=== PATIENT | male | born 1940 | race Asian ===

== ENCOUNTER 2022-05-03 11:00 | Inpatient (IN) | payer MEDICAID, OTHER ==
[~2022-05-03] VITALS: Ht 167.6 cm; Wt 64.0 kg
[2022-05-03 12:54] LABS: Basophils # (auto) 0.1 10 ^3/uL (0-0.2); Eosinophils # (auto) 0.4 10 ^3/uL (0-0.8); Eosinophils % (auto) 3.9 % (0.0-7.0); Hematocrit 44.3 % (41.0-53.0); Hemoglobin 14.6 g/dL (13.5-17.5); Lymphocytes % (auto) 49.4 % (10.0-50.0); Mean Corpuscular Hemoglobin 29.4 pg (28.0-32.0); Mean Corpuscular Hgb Conc. 32.9 g/dL (32.0-36.0); Mean Corpuscular Volume 89.4 fL (80.0-100.0); Monocytes # (auto) 0.7 10 ^3/uL (0-1.3); Monocytes % (auto) 6.7 % (0.0-12.0); Nucleated Red Blood Cells % 0.1 %; Red Blood Cells 4.95 10^6/uL (4.5-5.90); Red Cell Distribution Width 14.5 % (11.8-14.3); White Blood Cell 10.2 10^3/uL (4.4-10.8)
[2022-05-03 13:14] LABS: Albumin 3.8 g/dL (3.4-5.0); BUN/Creatinine Ratio 18.8; Calcium 9.1 mg/dL (8.5-10.1); Potassium 5.5 mmol/L (3.5-5.1)
[2022-05-03 13:17] LABS: Bilirubin, Total 0.3 mg/dL (0.2-1.0); Total Protein 7.9 g/dL (6.4-8.2)
[2022-05-03] MEDS ORDERED: FUROSEMIDE 20 MG/2 ML VIAL IV ONE (15:15)
[2022-05-03] MEDS ORDERED: SODIUM BICARBONATE 8.4% INJ 50ML SYRINGE IV ONE (15:15)
[2022-05-03] MEDS ORDERED: ALBUTEROL SULF 2.5 MG/0.5ML(0.5%) NEB SOLN NEB ONE (15:15)
[2022-05-03] MEDS ORDERED: SODIUM ZIRCONIUM CYCL 10 GM PAK PO ONE (15:15)
[2022-05-03] MEDS ORDERED: CALCIUM GLUC 1,000mg/50ml-NS 50 ML IV ONE (15:15)
[2022-05-03] MEDS ORDERED: ACETAMINOPHEN 325 MG TAB PO PRN (23:30)
[2022-05-03] MEDS ORDERED: DOCUSATE SOD 100 MG CAP PO PRN (23:30)
[2022-05-03] MEDS ORDERED: MORPHINE SULFATE INJ 2 MG/ml SYRG IV PRN (23:30)
[2022-05-03] MEDS ORDERED: NITROGLYCERIN 0.4 MG SL TAB SL PRN (23:30)
[2022-05-03] MEDS ORDERED: ONDANSETRON HCL 4 MG/2 ML VIAL IV PRN (23:30)
[2022-05-03] MEDS ORDERED: HYDROcodone-ACET 5/325MG TAB PO PRN (23:30)
[2022-05-04] VITALS (7 sets, daily range): BP systolic 111–136; BP diastolic 59–68
[2022-05-04 04:57] LABS: Urine WBC None Seen /hpf (0 - 3)
[2022-05-04 05:25] LABS: Urine Bacteria NONE SEEN /hpf (None Seen); Urine Blood Negative /uL (Negative); Urine Specific Gravity 1.009 (1.001-1.035)
[2022-05-04] MEDS: SODIUM CHLOR 0.9% PF (SALINE LOCK) 10ML VIAL/SYR IV SCH ×3 (06:17→22:00)
[2022-05-04] MEDS ORDERED: ASPI-325 PO (06:41)
[2022-05-04] MEDS ORDERED: PANT40T PO (06:41)
[2022-05-04] MEDS ORDERED: ATOR40TA52 PO (06:41)
[2022-05-04] MEDS ORDERED: NEBI5TAB2 PO (06:41)
[2022-05-04] MEDS ORDERED: LOSA-69 PO (06:41)
[2022-05-04 09:33] LABS: Basophils # (auto) 0.1 10 ^3/uL (0-0.2); Basophils % (auto) 0.7 % (0.0-2.0); Eosinophils # (auto) 0.5 10 ^3/uL (0-0.8); Eosinophils % (auto) 4.4 % (0.0-7.0); Hematocrit 43.8 % (41.0-53.0); Hemoglobin 14.3 g/dL (13.5-17.5); Lymphocytes # (auto) 5.1 10 ^3/uL (0.4-5.4); Lymphocytes % (auto) 48.3 % (10.0-50.0); Mean Corpuscular Hgb Conc. 32.6 g/dL (32.0-36.0); Mean Corpuscular Volume 89.1 fL (80.0-100.0); Monocytes # (auto) 0.7 10 ^3/uL (0-1.3); Monocytes % (auto) 6.9 % (0.0-12.0); Neutrophils # (auto) 4.2 10 ^3/uL (1.6-8.6); Neutrophils % (auto) 39.7 % (37.0-80.0); Nucleated Red Blood Cells % 0.1 %; Red Blood Cells 4.91 10^6/uL (4.5-5.90); Red Cell Distribution Width 14.7 % (11.8-14.3); White Blood Cell 10.6 10^3/uL (4.4-10.8)
[2022-05-04] MEDS: FAMOTIDINE (10MG/ML) 2ML VL IV SCH (09:44)
[2022-05-04] MEDS: ASPirin 81 mg TAB PO SCH (09:44)
[2022-05-04] MEDS: FUROSEMIDE 20 MG/2 ML VIAL IV SCH (09:44)
[2022-05-04 09:46] LABS: Albumin 3.5 g/dL (3.4-5.0); Calcium 9.6 mg/dL (8.5-10.1); Potassium 5.2 mmol/L (3.5-5.1)
[2022-05-04 09:49] LABS: BUN/Creatinine Ratio 19.8; Bilirubin, Total 0.4 mg/dL (0.2-1.0); Total Protein 7.6 g/dL (6.4-8.2)
[2022-05-04] MEDS: levoFLOXacin 500 MG TAB PO SCH (19:10)
[2022-05-04] MEDS: SODIUM CHLORIDE 0.9% 1,000 ML IV SCH ×2 (19:11→20:21)
[2022-05-04] MEDS: TAMSULOSIN HYDROCHLORIDE 0.4 MG CAP PO SCH (19:11)
[2022-05-04] MEDS: ATORVASTATIN 20 MG TAB PO SCH (21:22)
[2022-05-05 05:00] VITALS: BP 108/56
[2022-05-05] MEDS: SODIUM CHLOR 0.9% PF (SALINE LOCK) 10ML VIAL/SYR IV SCH ×3 (06:07→21:08)
[2022-05-05 08:00] VITALS: BP 113/60
[2022-05-05] MEDS: ASPirin 81 mg TAB PO SCH (10:52)
[2022-05-05] MEDS: levoFLOXacin 500 MG TAB PO SCH (10:53)
[2022-05-05] MEDS: FUROSEMIDE 20 MG/2 ML VIAL IV SCH (10:53)
[2022-05-05] MEDS: FAMOTIDINE (10MG/ML) 2ML VL IV SCH (10:53)
[2022-05-05 12:00] VITALS: BP 114/60
[2022-05-05] MEDS ORDERED: LEVOPOW XX (15:53)
[2022-05-05 16:00] VITALS: BP 106/63
[2022-05-05 16:46] LABS: BUN/Creatinine Ratio 18.5; Calcium 10.3 mg/dL (8.5-10.1); Potassium 5.4 mmol/L (3.5-5.1)
[2022-05-05] MEDS: TAMSULOSIN HYDROCHLORIDE 0.4 MG CAP PO SCH (18:01)
[2022-05-05] MEDS: SODIUM CHLORIDE 0.9% 1,000 ML IV SCH ×2 (18:30→22:46)
[2022-05-05] MEDS: ATORVASTATIN 20 MG TAB PO SCH (21:08)
[2022-05-05 22:00] VITALS: BP 131/64
[2022-05-06] VITALS (7 sets, daily range): BP systolic 111–143; BP diastolic 63–82
[2022-05-06] MEDS: ASPirin 81 mg TAB PO SCH (10:39)
[2022-05-06] MEDS: levoFLOXacin 250 MG TAB PO SCH (10:39)
[2022-05-06] MEDS: FAMOTIDINE (10MG/ML) 2ML VL IV SCH (10:40)
[2022-05-06] MEDS: FUROSEMIDE 20 MG/2 ML VIAL IV SCH (10:41)
[2022-05-06] MEDS: SODIUM CHLOR 0.9% PF (SALINE LOCK) 10ML VIAL/SYR IV SCH ×2 (10:44→22:16)
[2022-05-06] MEDS: SODIUM CHLORIDE 0.9% 1,000 ML IV SCH ×3 (10:44→23:34)
[2022-05-06] MEDS ORDERED: TAM04C PO (12:07)
[2022-05-06 16:03] LABS: BUN/Creatinine Ratio 13.8; Calcium 9.6 mg/dL (8.5-10.1); Potassium 5.3 mmol/L (3.5-5.1)
[2022-05-06] MEDS: D5W/SOD CHLO 0.9% 1,000 ML IV SCH (17:15)
[2022-05-06] MEDS: TAMSULOSIN HYDROCHLORIDE 0.4 MG CAP PO SCH (18:25)
[2022-05-06] MEDS: ATORVASTATIN 20 MG TAB PO SCH (22:16)
[2022-05-06 23:55] LABS: Urine WBC None Seen /hpf (0 - 3)
[2022-05-07 00:03] LABS: Urine Bacteria NONE SEEN /hpf (None Seen); Urine Blood Negative /uL (Negative); Urine Specific Gravity 1.011 (1.001-1.035)
[2022-05-07 00:18] LABS: Protein, Urine 8.4 mg/dL (0.0-11.9)
[2022-05-07 05:00] VITALS: BP 123/61
[2022-05-07] MEDS: SODIUM CHLORIDE 0.9% 1,000 ML IV SCH (05:33)
[2022-05-07 08:10] VITALS: BP 119/69
[2022-05-07 08:12] LABS: Albumin 3.4 g/dL (3.4-5.0); Calcium 9.6 mg/dL (8.5-10.1)
[2022-05-07 08:16] LABS: BUN/Creatinine Ratio 15.9; Bilirubin, Total 0.6 mg/dL (0.2-1.0); Total Protein 7.3 g/dL (6.4-8.2)
[2022-05-07 09:00] VITALS: BP 119/69
[2022-05-07] MEDS: D5W/SOD CHLO 0.9% 1,000 ML IV SCH (09:40)
[2022-05-07] MEDS: FAMOTIDINE (10MG/ML) 2ML VL IV SCH (09:42)
[2022-05-07] MEDS: levoFLOXacin 250 MG TAB PO SCH (09:42)
[2022-05-07] MEDS: ASPirin 81 mg TAB PO SCH (09:42)
[2022-05-07] MEDS: SODIUM CHLOR 0.9% PF (SALINE LOCK) 10ML VIAL/SYR IV SCH (09:43)
[2022-05-07] MEDS ORDERED: LEVOTHYROXINE SODIUM 25 MCG TAB PO ONE (09:45)
[2022-05-07] MEDS ORDERED: D5W/SOD CHLO 0.9% 1,000 ML IV SCH (09:45)
[2022-05-07] MEDS ORDERED: LEV75T PO (09:47)
[2022-05-07] MEDS ORDERED: ERGOCALCIFEROL 50,000 UNIT(1.25MG) CAP PO SCH (11:00)
[2022-05-07 13:00] VITALS: BP 124/63
== END 2022-05-07 14:35 | disposition home or self-care (01) | DRG 501 ==
LOC: ER 11:00 → OVERFLOW 23:22 → EAST 05-04 04:55
PROVIDERS: ADMIT Nurse Practitioner Family; ATTEND Internal Medicine
DX: N50.3 Cyst of epididymis (principal); N17.9 Acute kidney failure, unspecified; I13.0 Hypertensive heart and chronic kidney disease with heart failure and stage 1 through stage 4 chronic kidney disease, or unspecified chronic kidney disease; I42.9 Cardiomyopathy, unspecified; I50.22 Chronic systolic (congestive) heart failure; N43.3 Hydrocele, unspecified; E87.5 Hyperkalemia; N18.31 Chronic kidney disease, stage 3a; Z20.822 Contact with and (suspected) exposure to COVID-19; N40.0 Benign prostatic hyperplasia without lower urinary tract symptoms; Z79.82 Long term (current) use of aspirin
CPT/HCPCS: 36415; 74176; 76775; 76870; 80048; 80053; 80061; 81001; 82306; 82570; 82607; 83036; 83880; 83930; 83935; 84132; 84156; 84300; 84439; 84443; 84484; 85025; 93306; 94640; 96374; G0378; J3490; J7042

== ENCOUNTER → 2022-08-19 | Outpatient (CLI) | payer MEDICAID ==
[~2022-08-19] MED LIST: ASPI-325 PO; ATOR40TA52 PO; LEV75T PO; LEVOPOW XX; NEBI5TAB2 PO; PANT40T PO; TAM04C PO
[2022-08-19 08:41] LABS: Urine Bacteria NONE SEEN /hpf (None Seen); Urine Blood Negative /uL (Negative); Urine Specific Gravity 1.012 (1.001-1.035); Urine WBC <1 /hpf (0 - 3)
[2022-08-19 09:02] LABS: Albumin 3.6 g/dL (3.4-5.0); Calcium 10.1 mg/dL (8.5-10.1); Potassium 5.1 mmol/L (3.5-5.1)
[2022-08-19 09:08] LABS: BUN/Creatinine Ratio 14.3; Bilirubin, Total 0.7 mg/dL (0.2-1.0); Total Protein 7.6 g/dL (6.4-8.2)
== END | disposition home or self-care (01) ==
LOC: LAB 08:17
PROVIDERS: ATTEND Internal Medicine
DX: I10 Essential (primary) hypertension (principal); E11.9 Type 2 diabetes mellitus without complications; E03.9 Hypothyroidism, unspecified; N40.0 Benign prostatic hyperplasia without lower urinary tract symptoms; R51.9 Headache, unspecified
CPT/HCPCS: 36415; 80053; 80061; 81001; 83036; 84443

== ENCOUNTER → 2023-01-24 | Outpatient (CLI) | payer MEDICAID ==
[2023-01-24 13:59] LABS: Micro Albumin 14.1 mg/L (0-30.0)
== END | disposition home or self-care (01) ==
LOC: LAB 08:48
PROVIDERS: ATTEND Internal Medicine
DX: E11.9 Type 2 diabetes mellitus without complications (principal)
CPT/HCPCS: 36415; 82043; 82570; 83036; 84443

== ENCOUNTER → 2023-03-19 | Outpatient (CLI) | payer MEDICAID ==
[~2023-03-19] MED LIST changes: -TAM04C PO; +TAMS-35 PO
== END | disposition home or self-care (01) ==
LOC: Rad HDHVI 08:18
PROVIDERS: ATTEND Internal Medicine Cardiovascular Disease
DX: I08.8 Other rheumatic multiple valve diseases (principal); E78.5 Hyperlipidemia, unspecified; I11.9 Hypertensive heart disease without heart failure
CPT/HCPCS: 93306

== ENCOUNTER → 2023-03-26 | Outpatient (CLI) | payer MEDICAID ==
[~2023-03-26] VITALS: Ht 162.6 cm; Wt 63.5 kg
[~2023-03-26] MED LIST changes: +ADENOSINE 53 MG in GIVE UN-DILUTED 0 ML IV ONE; +ADENOSINE 90 MG/30 ML INJ IV ONE
== END | disposition home or self-care (01) ==
LOC: Rad HDHVI 08:08
PROVIDERS: ATTEND Internal Medicine Cardiovascular Disease
DX: Z01.810 Encounter for preprocedural cardiovascular examination (principal); I10 Essential (primary) hypertension; I25.10 Atherosclerotic heart disease of native coronary artery without angina pectoris; E78.00 Pure hypercholesterolemia, unspecified; R07.89 Other chest pain; R60.9 Edema, unspecified; R06.02 Shortness of breath; I25.2 Old myocardial infarction
CPT/HCPCS: 78452; 93005; 96374; 96375; A9500; J0153

== ENCOUNTER 2023-04-16 07:32 | Emergency (ER) | payer MEDICAID ==
[~2023-04-16] VITALS: Ht 152.4 cm; Wt 59.8 kg
[~2023-04-16 07:32] MED LIST changes: -ADENOSINE 53 MG in GIVE UN-DILUTED 0 ML IV ONE; -ADENOSINE 90 MG/30 ML INJ IV ONE
[2023-04-16] MEDS ORDERED: SODIUM CHLORIDE 0.9% 1,000 ML IV ONE (08:00)
[2023-04-16 08:09] LABS: Basophils # (auto) 0.1 10 ^3/uL (0-0.2); Basophils % (auto) 0.7 % (0.0-2.0); Eosinophils # (auto) 0.3 10 ^3/uL (0-0.8); Eosinophils % (auto) 1.6 % (0.0-7.0); Hematocrit 47.2 % (41.0-53.0); Hemoglobin 15.6 g/dL (13.5-17.5); Lymphocytes # (auto) 7.3 10 ^3/uL (0.4-5.4); Lymphocytes % (auto) 42.2 % (10.0-50.0); Mean Corpuscular Volume 87.5 fL (80.0-100.0); Monocytes # (auto) 0.7 10 ^3/uL (0-1.3); Monocytes % (auto) 3.8 % (0.0-12.0); Neutrophils # (auto) 8.9 10 ^3/uL (1.6-8.6); Neutrophils % (auto) 51.7 % (37.0-80.0); Nucleated Red Blood Cells % 0.1 %; White Blood Cell 17.2 10^3/uL (4.4-10.8)
[2023-04-16 08:10] LABS: Mean Corpuscular Hemoglobin 28.9 pg (28.0-32.0); Red Cell Distribution Width 15.1 % (11.8-14.3)
[2023-04-16 08:24] LABS: INR 1.08 (0.9-1.15); Partial Thromboplastin Time 28.2 SEC (24.5-34.5)
[2023-04-16 08:26] LABS: Albumin 3.7 g/dL (3.4-5.0); Calcium 9.4 mg/dL (8.5-10.1); Potassium 4.2 mmol/L (3.5-5.1)
[2023-04-16 08:30] LABS: BUN/Creatinine Ratio 17.5 (10.0-20.0); Total Protein 7.4 g/dL (6.4-8.2)
[2023-04-16] MEDS ORDERED: metroNIDAZOLE 500MG/100ML 100 ML IV ONE (08:45)
[2023-04-16 09:04] LABS: Urine Bacteria NONE SEEN /hpf (None Seen); Urine Blood Negative /uL (Negative); Urine Hyaline Cast FEW /lpf (0 - 2); Urine Mucus FEW (None Seen); Urine Specific Gravity 1.025 (1.001-1.035); Urine WBC 2 /hpf (0 - 3)
[2023-04-16] MEDS ORDERED: METR375C PO (11:16)
[2023-04-16 11:44] VITALS: BP 117/68
== END 2023-04-16 11:47 | disposition home or self-care (01) ==
LOC: ER 07:32
DX: K52.9 Noninfective gastroenteritis and colitis, unspecified (principal); K92.1 Melena; I11.0 Hypertensive heart disease with heart failure; I50.9 Heart failure, unspecified
CPT/HCPCS: 36415; 71045; 74176; 80053; 81001; 83605; 84484; 85025; 85610; 85730; 87040; 93005; 96365; 99285; J3490; J7030

== ENCOUNTER → 2023-09-22 | Outpatient (CLI) | payer MEDICAID ==
[~2023-09-22] MED LIST changes: +LOSA50TA46 PO; +METR375C PO
[2023-09-22 13:35] VITALS: BP 132/59; PULSE 65; RESP 16; O2SAT 96
[2023-09-22 13:53] VITALS: BP 126/61; PULSE 64; RESP 16; O2SAT 96
== END | disposition home or self-care (01) ==
LOC: CHF HDHVI 13:09
PROVIDERS: ATTEND Internal Medicine Cardiovascular Disease
DX: Z01.818 Encounter for other preprocedural examination (principal); R94.31 Abnormal electrocardiogram [ECG] [EKG]; I25.5 Ischemic cardiomyopathy
CPT/HCPCS: 93005; G0463

== ENCOUNTER 2023-09-25 07:52 | Day surgery (SDC) | payer MEDICAID ==
[2023-09-22 14:40] LABS: Basophils # (auto) 0.2 10 ^3/uL (0-0.2); Basophils % (auto) 2.2 % (0.0-2.0); Eosinophils # (auto) 0.3 10 ^3/uL (0-0.8); Eosinophils % (auto) 3.5 % (0.0-7.0); Hematocrit 45.6 % (41.0-53.0); Hemoglobin 15.3 g/dL (13.5-17.5); Lymphocytes # (auto) 2.7 10 ^3/uL (0.4-5.4); Lymphocytes % (auto) 35.7 % (10.0-50.0); Mean Corpuscular Hemoglobin 29.1 pg (28.0-32.0); Mean Corpuscular Hgb Conc. 33.6 g/dL (32.0-36.0); Mean Corpuscular Volume 86.7 fL (80.0-100.0); Monocytes # (auto) 0.5 10 ^3/uL (0-1.3); Monocytes % (auto) 6.4 % (0.0-12.0); Neutrophils % (auto) 52.2 % (37.0-80.0); Nucleated Red Blood Cells % 0.1 %; Red Blood Cells 5.26 10^6/uL (4.5-5.90); Red Cell Distribution Width 14.6 % (11.8-14.3); White Blood Cell 7.6 10^3/uL (4.4-10.8)
[2023-09-22 15:00] LABS: Chloride 107 mmol/L (98-107); INR 0.99 (0.9-1.15); Partial Thromboplastin Time 25.1 SEC (24.5-34.5); Potassium 4.2 mmol/L (3.5-5.1); Prothrombin Time 10.4 sec (9.3-11.8); Sodium 139 mmol/L (136-145)
[2023-09-22 15:01] LABS: Anion Gap 8 (5-15); Carbon Dioxide 24 mmol/L (20-30)
[2023-09-22 15:06] LABS: BUN/Creatinine Ratio 12.7 (10.0-20.0); Blood Urea Nitrogen 16 mg/dL (9-23); Glucose 113 mg/dL (74-106)
[2023-09-25] VITALS (8 sets, daily range): BP systolic 129–151; BP diastolic 68–91; PULSE 54–67; RESP 13–19; TEMP 97.6; O2SAT 92–97
[~2023-09-25] VITALS: Ht 162.6 cm; Wt 60.8 kg
[~2023-09-25 07:52] MED LIST changes: -LEVOPOW XX; -METR375C PO
[2023-09-25] MEDS ORDERED: IOHEXOL 350 MG/ML 100ML IJ ONE ×2 (09:55→10:05)
[2023-09-25] MEDS ORDERED: LIDOCAINE 2%HCL (LOCAL ANESTH.) INJ 20ML MDV ONE (09:55)
[2023-09-25] MEDS ORDERED: ANGIOMAX 250 MG VIAL IV ONE (10:04)
[2023-09-25] MEDS ORDERED: fentaNYL CITRATE 100 MCG/2 ML VL ONE (10:04)
[2023-09-25] MEDS ORDERED: MIDAZOLAM HCL 2MG/2ML 2ml VIAL (1mg/ml) ONE (10:05)
[2023-09-25] MEDS ORDERED: SODIUM CHL 0.9% 50 ML ONE (10:05)
[2023-09-25] MEDS ORDERED: ASPirin 325 MG TAB ONE (10:35)
[2023-09-25] MEDS ORDERED: TICAGRELOR 90 MG TAB ONE (10:35)
== END 2023-09-25 13:25 | disposition home or self-care (01) ==
LOC: CATH 07:52
PROVIDERS: ATTEND Internal Medicine Cardiovascular Disease
DX: I25.5 Ischemic cardiomyopathy (principal); I25.10 Atherosclerotic heart disease of native coronary artery without angina pectoris; I12.9 Hypertensive chronic kidney disease with stage 1 through stage 4 chronic kidney disease, or unspecified chronic kidney disease; N18.2 Chronic kidney disease, stage 2 (mild); J44.9 Chronic obstructive pulmonary disease, unspecified; E78.5 Hyperlipidemia, unspecified; Z86.73 Personal history of transient ischemic attack (TIA), and cerebral infarction without residual deficits; Z79.01 Long term (current) use of anticoagulants; Z79.899 Other long term (current) drug therapy
CPT/HCPCS: 36415; 80048; 85025; 85610; 85730; 93458; C1769; C1874; C1887; C1894; C9602; J0583; J1644; J2250; J3010; Q9967; 99152

== ENCOUNTER → 2024-03-08 | Outpatient (CLI) | payer MEDICAID ==
[~2024-03-08] MED LIST changes: +CLOP75TA28 PO; +LOSA-534 PO; -LOSA50TA46 PO; +TAMS0.4C36 PO
[2024-03-08 09:38] VITALS: BP 110/60; PULSE 59; RESP 16; O2SAT 95
[2024-03-08 09:52] VITALS: BP 98/56; PULSE 53; RESP 18; O2SAT 96
== END | disposition home or self-care (01) ==
LOC: Rad HDHVI 09:27
PROVIDERS: ATTEND Internal Medicine Cardiovascular Disease
DX: Z01.818 Encounter for other preprocedural examination (principal); I65.21 Occlusion and stenosis of right carotid artery; I70.0 Atherosclerosis of aorta; I10 Essential (primary) hypertension; I25.10 Atherosclerotic heart disease of native coronary artery without angina pectoris
CPT/HCPCS: 71046; 93005; G0463

== ENCOUNTER 2024-03-11 08:03 | Inpatient (IN) | payer MEDICAID ==
[2024-03-08 11:54] LABS: INR 1.03 (0.9-1.15); Partial Thromboplastin Time 25.3 SEC (24.5-34.5); Prothrombin Time 10.9 sec (9.3-11.8)
[~2024-03-11] VITALS: Ht 162.6 cm; Wt 65.3 kg
[2024-03-11] VITALS (16 sets, daily range): BP systolic 118–169; BP diastolic 54–89; PULSE 46–69; RESP 15–20; TEMP 97.4–98.3; O2SAT 96–100
[~2024-03-11 08:03] MED LIST changes: -TAMS0.4C36 PO
[2024-03-11] MEDS: HEPARIN SODIUM (PORCINE) 5000 UNITS/ML 1ML VIAL ONE (09:36)
[2024-03-11] MEDS: ANGIOMAX 250 MG VIAL IV ONE (09:36)
[2024-03-11] MEDS: VERAPAMIL 2.5MG/ML INJ 2ML VIAL IV ONE (09:37)
[2024-03-11] MEDS: MIDAZOLAM HCL 2MG/2ML 2ml VIAL (1mg/ml) ONE (09:37)
[2024-03-11] MEDS: SODIUM CHL 0.9% 0 ML ONE (09:37)
[2024-03-11] MEDS: fentaNYL CITRATE 100 MCG/2 ML VL ONE (09:37)
[2024-03-11] MEDS: ATROPINE SULF 1 MG/10ml SYR ONE (10:21)
[2024-03-11] MEDS: IODIXANOL 320MG/ML 100ML BTL IV ONE (10:38)
[2024-03-11] MEDS: CLOPIDOGREL BISULFATE 75 MG TAB ONE (10:48)
[2024-03-11] MEDS: ASPirin 81 mg TAB ONE (10:48)
[2024-03-11] MEDS ORDERED: NITROGLYCERIN 0.4 MG SL TAB SL PRN (12:15)
[2024-03-11] MEDS ORDERED: MORPHINE SULFATE INJ 2 MG/ml SYRG IV PRN (12:15)
[2024-03-11] MEDS ORDERED: TAMS0.4C36 PO (12:19)
[2024-03-11] MEDS ORDERED: LEV75T PO (12:19)
[2024-03-11] MEDS: LOSARTAN POTASSIUM 50 MG TAB PO ONE (16:30)
[2024-03-11] MEDS: TAMSULOSIN HYDROCHLORIDE 0.4 MG CAP PO SCH (17:18)
[2024-03-11] MEDS: ATORVASTATIN 20 MG TAB PO SCH (22:28)
[2024-03-12] VITALS (7 sets, daily range): BP systolic 102–150; BP diastolic 59–86; PULSE 51–77; RESP 18–19; TEMP 97.2–97.8; O2SAT 97–99
[2024-03-12] MEDS: LEVOTHYROXINE SODIUM 25 MCG TAB PO SCH (06:49)
[2024-03-12] MEDS: ASPirin 81 mg TAB PO SCH (10:50)
[2024-03-12] MEDS: CLOPIDOGREL BISULFATE 75 MG TAB PO SCH (10:50)
[2024-03-12] MEDS: PANTOPRAZOLE 40 MG TAB PO SCH (10:51)
[2024-03-12] MEDS: LOSARTAN POTASSIUM 50 MG TAB PO SCH (10:52)
== END 2024-03-12 18:10 | disposition home or self-care (01) | DRG 175 ==
LOC: CATH 08:03 → TELE 12:19 → TELE-CENTR 15:26
PROVIDERS: ADMIT Internal Medicine Cardiovascular Disease; ATTEND Internal Medicine Cardiovascular Disease
PROC: 027135Z Dilation of Coronary Artery, Two Arteries with Two Drug-eluting Intraluminal Devices, Percutaneous Approach (ICD-10-PCS; principal; 2024-03-11)
PROC: 4A023N7 Measurement of Cardiac Sampling and Pressure, Left Heart, Percutaneous Approach (ICD-10-PCS; 2024-03-11)
PROC: B211YZZ Fluoroscopy of Multiple Coronary Arteries using Other Contrast (ICD-10-PCS; 2024-03-11)
PROC: 02C13ZZ Extirpation of Matter from Coronary Artery, Two Arteries, Percutaneous Approach (ICD-10-PCS; 2024-03-11)
DX: I25.10 Atherosclerotic heart disease of native coronary artery without angina pectoris (principal); R00.1 Bradycardia, unspecified
CPT/HCPCS: 36415; 85610; 85730; 92929; 92933; 93458; 99152; C1724; C1874; G0378; J2250; Q9967

== ENCOUNTER 2024-03-24 12:26 | Inpatient (IN) | payer MEDICAID ==
[~2024-03-24] VITALS: Ht 154.9 cm; Wt 62.4 kg
[~2024-03-24 12:26] MED LIST changes: -TAMS-35 PO; +TAMS0.4C36 PO
[2024-03-24 13:12] LABS: Basophils # (auto) 0.1 10 ^3/uL (0-0.2); Basophils % (auto) 1.1 % (0.0-2.0); Eosinophils # (auto) 0.3 10 ^3/uL (0-0.8); Eosinophils % (auto) 3.7 % (0.0-7.0); Hematocrit 44.1 % (41.0-53.0); Hemoglobin 14.5 g/dL (13.5-17.5); Lymphocytes # (auto) 3.7 10 ^3/uL (0.4-5.4); Mean Corpuscular Hemoglobin 26.9 pg (28.0-32.0); Mean Corpuscular Hgb Conc. 32.9 g/dL (32.0-36.0); Mean Corpuscular Volume 81.7 fL (80.0-100.0); Monocytes # (auto) 0.4 10 ^3/uL (0-1.3); Monocytes % (auto) 4.8 % (0.0-12.0); Neutrophils # (auto) 3.7 10 ^3/uL (1.6-8.6); Neutrophils % (auto) 45.4 % (37.0-80.0); Nucleated Red Blood Cells % 0.1 %; Red Blood Cells 5.39 10^6/uL (4.5-5.90); Red Cell Distribution Width 17.7 % (11.8-14.3); White Blood Cell 8.2 10^3/uL (4.4-10.8)
[2024-03-24 13:35] LABS: Alanine Aminotransferase 17 U/L (7-40); Albumin 4.2 g/dL (3.2-4.8); Alkaline Phosphatase 62 U/L (46-116); Anion Gap 5 (5-15); Aspartate Aminotransferase 25 U/L (13-40); BUN/Creatinine Ratio 10.3 (10.0-20.0); Blood Urea Nitrogen 12 mg/dL (9-23); Calcium 10.2 mg/dL (8.5-10.1); Carbon Dioxide 26 mmol/L (20-30); Chloride 109 mmol/L (98-107); Glucose 133 mg/dL (74-106); Potassium 3.9 mmol/L (3.5-5.1); Sodium 140 mmol/L (136-145)
[2024-03-24 13:36] LABS: Bilirubin, Total 0.7 mg/dL (0.2-1.0)
[2024-03-24 16:38] LABS: INR 1.03 (0.9-1.15); Partial Thromboplastin Time 25.4 SEC (24.5-34.5); Prothrombin Time 10.9 sec (9.3-11.8)
[2024-03-25] VITALS (13 sets, daily range): BP systolic 142–167; BP diastolic 61–90; PULSE 53–72; RESP 15–18; TEMP 97.2–98.4; O2SAT 92–98
[2024-03-25] MEDS ORDERED: ENOXAPARIN SOD 30 MG/0.3 ML SYRINGE IV ONE (01:00)
[2024-03-25] MEDS: SODIUM CHLORIDE 0.9% 1,000 ML IV ONE (01:58)
[2024-03-25] MEDS: ENOXAPARIN SOD 30 MG/0.3 ML SYRINGE IV ONE (03:55)
[2024-03-25 07:00] LABS: Urine Bacteria None Seen /hpf (None Seen)
[2024-03-25 07:26] LABS: Urine Blood Negative /uL (Negative); Urine Clarity Clear (Clear); Urine Color Light-Yellow (Yellow); Urine Protein, UAD Negative (Negative); Urine Specific Gravity 1.015 (1.001-1.035); Urine Urobilinogen Normal (Negative); Urine WBC <1 /hpf (0 - 3)
[2024-03-25] MEDS: LIDOCAINE 2%HCL (LOCAL ANESTH.) INJ 20ML MDV ONE (12:54)
[2024-03-25] MEDS: IOHEXOL 350 MG/ML 100ML IJ ONE (12:54)
[2024-03-25] MEDS: SODIUM CHL 0.9% 50 ML ONE (13:12)
[2024-03-25] MEDS: fentaNYL CITRATE 100 MCG/2 ML VL ONE (13:12)
[2024-03-25] MEDS: MIDAZOLAM HCL 2MG/2ML 2ml VIAL (1mg/ml) ONE (13:12)
[2024-03-25] MEDS: ANGIOMAX 250 MG VIAL IV ONE (13:12)
[2024-03-25] MEDS: NITROGLYCERIN 0.4MG/DOSE SPRAY 4.9GM ONE (13:51)
[2024-03-25] MEDS: CLOPIDOGREL BISULFATE 75 MG TAB ONE (13:51)
[2024-03-25] MEDS: TAMSULOSIN HYDROCHLORIDE 0.4 MG CAP PO SCH (18:06)
[2024-03-25] MEDS: METOPROLOL TARTRATE 25 MG TAB PO SCH (21:02)
[2024-03-25] MEDS: ATORVASTATIN 20 MG TAB PO SCH (21:05)
[2024-03-26] VITALS (7 sets, daily range): BP systolic 125–149; BP diastolic 69–81; PULSE 53–70; RESP 16–18; TEMP 97.2–98.4; O2SAT 94–98
[2024-03-26] MEDS: LEVOTHYROXINE SODIUM 25 MCG TAB PO SCH (05:32)
[2024-03-26] MEDS: ASPirin 81 mg TAB PO SCH (08:47)
[2024-03-26] MEDS: LOSARTAN POTASSIUM 50 MG TAB PO SCH (08:49)
[2024-03-26] MEDS: CLOPIDOGREL BISULFATE 75 MG TAB PO SCH (08:49)
[2024-03-26] MEDS: PANTOPRAZOLE 40 MG TAB PO SCH (08:49)
== END 2024-03-26 19:45 | disposition home or self-care (01) | DRG 175 ==
LOC: EEVIPCON 12:30 → ER 12:30 → TELE-EAST 03-25 01:08 → TELE 03-25 01:08 → TELE-EAST 03-25 02:32
PROVIDERS: ADMIT Internal Medicine Cardiovascular Disease; ATTEND Internal Medicine Cardiovascular Disease
PROC: 027034Z Dilation of Coronary Artery, One Artery with Drug-eluting Intraluminal Device, Percutaneous Approach (ICD-10-PCS; principal; 2024-03-25)
PROC: 02F03ZZ Fragmentation in Coronary Artery, One Artery, Percutaneous Approach (ICD-10-PCS; 2024-03-25)
PROC: 02C03ZZ Extirpation of Matter from Coronary Artery, One Artery, Percutaneous Approach (ICD-10-PCS; 2024-03-25)
PROC: 4A023N7 Measurement of Cardiac Sampling and Pressure, Left Heart, Percutaneous Approach (ICD-10-PCS; 2024-03-25)
PROC: B2111ZZ Fluoroscopy of Multiple Coronary Arteries using Low Osmolar Contrast (ICD-10-PCS; 2024-03-25)
PROC: 02C03ZZ Extirpation of Matter from Coronary Artery, One Artery, Percutaneous Approach (ICD-10-PCS; 2024-03-25)
DX: I25.119 Atherosclerotic heart disease of native coronary artery with unspecified angina pectoris (principal); I24.9 Acute ischemic heart disease, unspecified; I50.9 Heart failure, unspecified; I11.0 Hypertensive heart disease with heart failure; E03.9 Hypothyroidism, unspecified; E78.5 Hyperlipidemia, unspecified; Z86.73 Personal history of transient ischemic attack (TIA), and cerebral infarction without residual deficits
CPT/HCPCS: 36415; 71045; 80053; 81001; 84484; 85025; 85610; 85730; 86850; 86900; 86901; 87081; 93005; 99152; C1874; G0378; J2250

== ENCOUNTER 2024-12-05 15:16 | Inpatient (IN) | payer MEDICAID ==
[~2024-12-05] VITALS: Ht 162.6 cm; Wt 67.5 kg
[~2024-12-05 15:16] MED LIST changes: +NEBI5TAB10 PO; -NEBI5TAB2 PO; -TAMS0.4C36 PO; +TAMS0.4C39 PO
--- NOTE | 2024-12-05 15:38 | ED.PDOC ---
History of Present Illness HPI Comments [age] year old male with extensive past medical history including not limited to TBI, heart attack with one stent placement currently on Plavix, CHF, hypertension, here today with complaints of chest pain that started yesterday that radiates to his left upper extremity. Describes the pain as an ache and states his left upper extremity feels numb. No trauma. No rashes. No fevers or chills. No nausea or vomiting. Does endorse 1 hour of blurry vision earlier today but that has since resolved. States the pain is intermittent and is not worsened with exertion. No other pain or symptoms. Chief Complaint: Chest Pain Time Seen by MD: 15:27 Primary Care Provider: UNKNOWN NAME Allergies: Coded Allergies: NO KNOWN ALLERGIES (Unverified , 05/03/22) Home Meds Reported Medications Tamsulosin Hcl (Tamsulosin Hcl) 0.4 Mg Cap, 1 CAP PO QPM for BPH 03/11/24 Levothyroxine Sodium (Synthroid) 75 Mcg Tab, 1 TAB PO QAM for HYPOTHYROIDISM 03/11/24 Clopidogrel Bisulfate (Plavix) 75 Mg Tab, 1 TAB PO DAILY for CAD 03/08/24 Losartan Potassium (Losartan Potassium) 50 Mg Tab, 1 TAB PO DAILY for HYPERTENSION 09/22/23 Nebivolol Hcl (Bystolic) 5 Mg Tab, 1 TAB PO DAILY for HYPERTENSION 05/04/22 Aspirin (Aspirin Low Dose) 81 Mg Tab, 1 TAB PO DAILY for CAD 05/04/22 Pantoprazole Sodium Sesquihydr (Pantoprazole Sodium) 40 Mg Tab, 1 TAB PO DAILY for GERD 05/04/22 Atorvastatin Calcium (ATORVASTATIN CALCIUM) 40 Mg Tab, 1 TAB PO QPM for HIGH CHOLESTEROL 05/04/22 Past Medical History PAST MEDICAL HISTORY: CHF, HTN, NC, TIA Surgical History: Denies all surgeries Family History Family History: Reviewed,noncontributory to illness Social History Smoker: Non-Smoker Alcohol: Denies ETOH Use Drugs: Denies Drug Use Lives In: Home EENTM: reports: blurred vision Cardiovascular: reports: chest pain Physical Exam General Appearance: No Apparent Distress, Normal HEENT: Normal ENT Inspection, Pharynx Normal, TMs Normal Neck: Full Range of Motion, Non-Tender, Normal, Normal Inspection Respiratory: Chest Non-Tender, Lungs Clear, No Accessory Muscle Use, No Respiratory Distress, Normal Breath Sounds Cardiovascular: No Edema, No JVD, No Murmur, No Gallop, Normal Peripheral Pulses, Regular Rate/Rhythm Breast Exam: Deferred Gastrointestinal: No Organomegaly, Non Tender, No Pulsatile Mass, Normal Bowel Sounds, Soft Genitalia: Deferred Pelvic: Deferred Rectal: Deferred Extremities: No calf tenderness, Normal capillary refill, Normal inspection, Normal range of motion, Non-tender, No pedal edema Musculoskeletal : Apperance: Normal Neurologic: Alert, 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 Was a procedure done?: No EKG EKG : Pulse Rate (adult): 61 [place]: Normal Cardiac Rhythm: NSR Comments T-wave inversions to lead II, III, V4 V5 V6. No STEMI. Differential Dx Considerations may include: ACS, pulmonary embolism, aortic dissection, Boerhaave syndrome, TIA, costochondritis, anxiety, viral URI X-Ray, Labs, Meds, VS Vital Signs Date Time Temp Pulse Resp B/P (MAP) Pulse Ox O2 Delivery O2 Flow Rate FiO2 12/05/24 17:55 68 16 107/65 (79) 98 12/05/24 17:55 68 16 98 Room Air* 0 21 12/05/24 16:18 57 12/05/24 15:38 61 12/05/24 15:33 97.9 64 18 104/53 (70) 94 Lab Test 12/05/24 16:49 12/05/24 15:54 12/05/24 15:38 Range/Units Troponin I High Sensitivity 19 19 </=54 ng/L White Blood Count 9.4 4.4-10.8 10^3/uL Red Blood Count 6.27 H 4.5-5.90 10^6/uL Hemoglobin 17.5 13.5-17.5 g/dL Hematocrit 53.3 H 41.0-53.0 % Mean Corpuscular Volume 85.0 80.0-100.0 fL Mean Corpuscular Hemoglobin 27.9 L 28.0-32.0 pg Mean Corpuscular Hemoglobin Concent 32.8 32.0-36.0 g/dL Red Cell Distribution Width 17.9 H 11.8-14.3 % Platelet Count 224 140-450 10^3/uL Mean Platelet Volume 7.7 6.9-10.8 fL Neutrophils (%) (Auto) 45.1 37.0-80.0 % Lymphocytes (%) (Auto) 42.9 10.0-50.0 % Monocytes (%) (Auto) 7.7 0.0-12.0 % Eosinophils (%) (Auto) 3.2 0.0-7.0 % Basophils (%) (Auto) 1.1 0.0-2.0 % Neutrophils # (Auto) 4.2 1.6-8.6 10 ^3/uL Lymphocytes # (Auto) 4.0 0.4-5.4 10 ^3/uL Monocytes # (Auto) 0.7 0-1.3 10 ^3/uL Eosinophils # (Auto) 0.3 0-0.8 10 ^3/uL Basophils # (Auto) 0.1 0-0.2 10 ^3/uL Nucleated Red Blood Cells 0.2 % Sodium Level 138 136-145 mmol/L Potassium Level 4.6 3.5-5.1 mmol/L Chloride Level 103 98-107 mmol/L Carbon Dioxide Level 28 20-31 mmol/L Anion Gap 7 5-15 Blood Urea Nitrogen 23 9-23 mg/dL Creatinine 1.73 H 0.700-1.30 mg/dL Glomerular Filtration Rate Calc 38 >90 mL/min BUN/Creatinine Ratio 13.3 10.0-20.0 Serum Glucose 66 L 74-106 mg/dL Calcium Level 11.3 H 8.7-10.4 mg/dL Phosphorus Level 3.6 2.4-5.1 mg/dL Magnesium Level 2.2 1.6-2.6 mg/dL B-Type Natriuretic Peptide 33.97 0-100 pg/mL Lipase 91 H 12-53 U/L Thyroid Stimulating Hormone (TSH) 8.01 H 0.55-4.78 uIU/mL Urine Color Yellow Yellow Urine Clarity Clear Clear Urine pH 5.5 5.0-9.0 Urine Specific [place] 1.021 1.001-1.035 Urine Protein Trace H Negative Urine Ketones Negative Negative Urine Blood Negative Negative /uL Urine Nitrite Negative Negative Urine Bilirubin Negative Negative Urine Urobilinogen 2 H Negative mg/dL Urine Leukocyte Esterase Negative Negative /uL Urine RBC 1 0 - 3 /hpf Urine Microscopic WBC 2 0-3 /HPF Urine Squamous Epithelial Cells Few <5 /hpf Urine Bacteria Few H None Seen /hpf Urine Hyaline Casts Many 0 - 2 /lpf Urine Mucus Few None Seen Urine Glucose Normal Normal mg/dL Current Medications Medications (Trade) Dose Ordered Sig/Anatoly Route Start Time Stop Time Status Last Admin Dextrose 250 ml @ 1,000 mls/hr ONCE ONCE IV 12/05/24 17:00 12/05/24 17:14 DC 12/05/24 18:18 X-Ray, Labs, Meds, VS Comment 84-year-old male with extensive medical history as above here today with compla ints of chest pain. Vital signs stable, afebrile. Physical exam as above without any acute findings. Labs overall reassuring with evidence of 2 negative troponins and EKG without evidence of acute ischemia. Patient found to be hypoglycemic which was corrected with dextrose. Given patient was medical history with a heart score of six and active chest pain, plan made to admit the patient to the telemetry unit for further cardiac risk stratification of his unstable angina. Patient and grandson at bedside in agreement with the plan. Patient admitted to the medicine team. Images Reviewed?: Images reviewed and evaluated by me Time of 1ST Reevaluation: 15:38 Reevaluation 1ST: Unchanged Patient Education/Counseling: Diagnosis, Treatment, Prognosis Family Education/Counseling: Diagnosis, Treatment, Prognosis Departure 1 Departure Time of Disposition: 17:24 Impression: Primary Impression: Unstable angina Additional Impressions: History of TIA (transient ischemic attack) History of heart artery stent Disposition: ADMITTED INPATIENT Admit to: [facility] [place] Condition: Guarded Critical Care Note Critical Care Time?: No Stability Stability form required: No Heart Score Heart Score: Heart Score Response (Comments) Value History Moderate Suspicious 1 EKG Repolarization Disturb 1 Age >65 2 Risk Factors >3 or Hx ASHD 2 Troponin Normal limit 0 Total 6 FAY WALLACE MD Dec 05, 2024 15:38
[2024-12-05 16:05] LABS: Basophils # (auto) 0.1 10 ^3/uL (0-0.2); Eosinophils # (auto) 0.3 10 ^3/uL (0-0.8); Nucleated Red Blood Cells % 0.2 %
[2024-12-05 16:07] LABS: Basophils % (auto) 1.1 % (0.0-2.0); Eosinophils % (auto) 3.2 % (0.0-7.0); Hematocrit 53.3 % (41.0-53.0); Hemoglobin 17.5 g/dL (13.5-17.5); Lymphocytes % (auto) 42.9 % (10.0-50.0); Mean Corpuscular Hemoglobin 27.9 pg (28.0-32.0); Mean Corpuscular Hgb Conc. 32.8 g/dL (32.0-36.0); Monocytes # (auto) 0.7 10 ^3/uL (0-1.3); Monocytes % (auto) 7.7 % (0.0-12.0); Neutrophils # (auto) 4.2 10 ^3/uL (1.6-8.6); Neutrophils % (auto) 45.1 % (37.0-80.0); Platelet Count (auto) 224 10^3/uL (140-450); Red Blood Cells 6.27 10^6/uL (4.5-5.90); Red Cell Distribution Width 17.9 % (11.8-14.3); White Blood Cell 9.4 10^3/uL (4.4-10.8)
--- NOTE | 2024-12-05 16:18 | DVH ---
CHEST RADIOGRAPH Indication: chest pain Technique: Single frontal view of the chest was obtained Comparison: XY CHEST PORTABLE on DOS: 03/24/24, XY CHEST PORTABLE on DOS: 04/16/23 FINDINGS: Lines and Tubes: None Lungs: No focal consolidation. Pleura: No effusion. No pneumothorax. Cardiomediastinal contours: Unremarkable Bones: No acute osseous abnormality. IMPRESSION: 1. No acute cardiopulmonary disease. 2. No significant change from 03/24/2024. HS:Y
[2024-12-05 16:29] LABS: Chloride 103 mmol/L (98-107); Potassium 4.6 mmol/L (3.5-5.1); Sodium 138 mmol/L (136-145)
[2024-12-05 16:30] LABS: Anion Gap 7 (5-15); Carbon Dioxide 28 mmol/L (20-31)
[2024-12-05 16:35] LABS: BUN/Creatinine Ratio 13.3 (10.0-20.0)
[2024-12-05 16:36] LABS: Blood Urea Nitrogen 23 mg/dL (9-23); Calcium 11.3 mg/dL (8.7-10.4); Glucose 66 mg/dL (74-106)
[2024-12-05 16:37] LABS: Phosphorus 3.6 mg/dL (2.4-5.1)
[2024-12-05 16:57] LABS: Magnesium 2.2 mg/dL (1.6-2.6)
[2024-12-05 17:05] LABS: Urine Bacteria FEW /hpf (None Seen); Urine Blood Negative /uL (Negative); Urine Clarity Clear (Clear); Urine Color Yellow (Yellow); Urine Hyaline Cast MANY /lpf (0 - 2); Urine Mucus FEW (None Seen); Urine Protein, UAD TRACE (Negative); Urine Specific Gravity 1.021 (1.001-1.035); Urine Squamous Epithelial Cell FEW /hpf (<5); Urine Urobilinogen 2 mg/dL (Negative); Urine WBC 2 /HPF (0-3); Urine pH 5.5 (5.0-9.0)
[2024-12-05 17:55] VITALS: PULSE 68; RESP 16; O2SAT 98
[2024-12-05] MEDS: DEXTROSE 10% 250 ML IV ONE (18:18)
--- NOTE | 2024-12-05 18:38 | ECG ---
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
[2024-12-05] MEDS ORDERED: MORPHINE SULFATE INJ 2 MG/ml SYRG IV PRN (19:00)
[2024-12-05] MEDS ORDERED: ACETAMINOPHEN 325 MG TAB PO PRN (19:00)
[2024-12-05] MEDS ORDERED: ONDANSETRON HCL 4 MG/2 ML VIAL IV PRN (19:00)
[2024-12-05] MEDS ORDERED: NITROGLYCERIN 0.4 MG SL TAB SL PRN (19:00)
--- NOTE | 2024-12-05 21:19 | DVHHP2 ---
History of Present Illness Reason for Visit: Chest pain History of Present Illness 84-year-old male presents for chest pain. Patient reports a two day history left-sided chest pain. He states the pain that is nonradiating and is aching can nature. Denies shortness or breath, nausea or vomiting. No other acute complaints reported. Past Medical History Hypertension [place], CHF Past Surgical History Denies Family History Noncontributory Smoke: No ALCOHOL: none Drugs: None Lives: with Family Review of Systems Review of Systems Review of systems are currently negative addressed HPI Allergies: Coded Allergies: NO KNOWN ALLERGIES (Unverified , 05/03/22) Medications Current Medications Medications Dose Ordered Sig/Anatoly Route Start Time Stop Time Status Last Admin Dose Admin Aspirin 81 mg DAILY PO 12/06/24 10:00 Atorvastatin Calcium 40 mg HS PO 12/05/24 22:00 Clopidogrel Bisulfate 75 mg DAILY PO 12/06/24 10:00 Levothyroxine Sodium 100 mcg QAM@0600 PO 12/06/24 06:00 Losartan Potassium 50 mg DAILY PO 12/06/24 10:00 Ondansetron HCl 4 mg Q4HP PRN IV 12/05/24 19:00 Acetaminophen 650 mg Q6HP PRN PO 12/05/24 19:00 Nitroglycerin 0.4 mg Q5MINP PRN SL 12/05/24 19:00 Morphine Sulfate 2 mg Q30M PRN IV 12/05/24 19:00 Enoxaparin Sodium 30 mg DAILY SC 12/06/24 10:00 Exam Vital Signs Vital Signs Date Time Temp Pulse Resp B/P (MAP) Pulse Ox O2 Delivery O2 Flow Rate FiO2 12/05/24 17:55 68 16 107/65 (79) 98 12/05/24 17:55 Room Air* 0 21 12/05/24 15:33 97.9 Exam Gen: 84-year-old male in mild distress. Skin: Warm, dry, normal color and texture, no rash. HEENT: Normocephalic atraumatic, mucous membranes moist and pink. Neck: Cervical and supraclavicular nodes normal without enlargement, trachea is midline, thyroid gland is normal without masses. Pulmonary: Clear to auscultation and percussion bilaterally. Cardiac: Regular rate and rhythm. No murmur Abdomen: Soft, nontender, nondistended, bowel sounds present all 4 quadrants, no guarding, no rigidity, no organomegaly. Extremities: No cyanosis, clubbing, no edema Neuro: Cranial nerves II through XII grossly intact, normal affect and speech, no focal motor deficits. Labs/Xrays ORDERING PHYSICIAN: FAY WALLACE MD PROCEDURE(s): CXR1 - CHEST XRAY 1 VIEW REASON: chest pain ORDER NUMBER(s): [id number], ACCESSION NUMBER(s): [id number] CHEST RADIOGRAPH Indication: chest pain Technique: Single frontal view of the chest was obtained Comparison: XY CHEST PORTABLE on DOS: 03/24/24, XY CHEST PORTABLE on DOS: 04/16/23 FINDINGS: Lines and Tubes: None Lungs: No focal consolidation. Pleura: No effusion. No pneumothorax. Cardiomediastinal contours: Unremarkable Bones: No acute osseous abnormality. IMPRESSION: 1. No acute cardiopulmonary disease. 2. No significant change from 03/24/2024. HS:Y Labs Test 12/05/24 20:25 12/05/24 19:38 12/05/24 16:49 12/05/24 15:54 Range/Units Troponin I High Sensitivity 19 </=54 ng/L White Blood Count 9.4 4.4-10.8 10^3/uL Red Blood Count 6.27 H 4.5-5.90 10^6/uL Hemoglobin 17.5 13.5-17.5 g/dL Hematocrit 53.3 H 41.0-53.0 % Mean Corpuscular Volume 85.0 80.0-100.0 fL Mean Corpuscular Hemoglobin 27.9 L 28.0-32.0 pg Mean Corpuscular Hemoglobin Concent 32.8 32.0-36.0 g/dL Red Cell Distribution Width 17.9 H 11.8-14.3 % Platelet Count 224 140-450 10^3/uL Mean Platelet Volume 7.7 6.9-10.8 fL Neutrophils (%) (Auto) 45.1 37.0-80.0 % Lymphocytes (%) (Auto) 42.9 10.0-50.0 % Monocytes (%) (Auto) 7.7 0.0-12.0 % Eosinophils (%) (Auto) 3.2 0.0-7.0 % Basophils (%) (Auto) 1.1 0.0-2.0 % Neutrophils # (Auto) 4.2 1.6-8.6 10 ^3/uL Lymphocytes # (Auto) 4.0 0.4-5.4 10 ^3/uL Monocytes # (Auto) 0.7 0-1.3 10 ^3/uL Eosinophils # (Auto) 0.3 0-0.8 10 ^3/uL Basophils # (Auto) 0.1 0-0.2 10 ^3/uL Nucleated Red Blood Cells 0.2 % Sodium Level 138 136-145 mmol/L Potassium Level 4.6 3.5-5.1 mmol/L Chloride Level 103 98-107 mmol/L Carbon Dioxide Level 28 20-31 mmol/L Anion Gap 7 5-15 Blood Urea Nitrogen 23 9-23 mg/dL Creatinine 1.73 H 0.700-1.30 mg/dL Glomerular Filtration Rate Calc 38 >90 mL/min BUN/Creatinine Ratio 13.3 10.0-20.0 Serum Glucose 66 L 74-106 mg/dL Calcium Level 11.3 H 8.7-10.4 mg/dL Phosphorus Level 3.6 2.4-5.1 mg/dL Magnesium Level 2.2 1.6-2.6 mg/dL B-Type Natriuretic Peptide 33.97 0-100 pg/mL Lipase 91 H 12-53 U/L Thyroid Stimulating Hormone (TSH) 8.01 H 0.55-4.78 uIU/mL Test 12/05/24 15:38 Range/Units Urine Color Yellow Yellow Urine Clarity Clear Clear Urine pH 5.5 5.0-9.0 Urine Specific [place] 1.021 1.001-1.035 Urine Protein Trace H Negative Urine Ketones Negative Negative Urine Blood Negative Negative /uL Urine Nitrite Negative Negative Urine Bilirubin Negative Negative Urine Urobilinogen 2 H Negative mg/dL Urine Leukocyte Esterase Negative Negative /uL Urine RBC 1 0 - 3 /hpf Urine Microscopic WBC 2 0-3 /HPF Urine Squamous Epithelial Cells Few <5 /hpf Urine Bacteria Few H None Seen /hpf Urine Hyaline Casts Many 0 - 2 /lpf Urine Mucus Few None Seen Urine Glucose Normal Normal mg/dL Assessment/Plan Assessment/Plan Assessment Unstable angina History of [place] Status post PTCA Acute kidney injury Hypothyroid Plan Patient currently she to the hospitalist Cardiology consultation Echocardiogram pending Thyroid panel pending Resume home medications Continue treatment per orders. Plan discussed with: Patient My Orders Orders - WILFRED BILLY Procedure Category Date Status Time Aspirin Tablet PHA 12/06/24 In Process 10:00 Atorvastatin (Lipitor) PHA 12/05/24 In Process 22:00 Clopidogrel Bisulfate PHA 12/06/24 In Process (Plavix) 10:00 Levothyroxine Tablet PHA 12/06/24 In Process (Synthroid Tablet) 06:00 Losartan Tablet PHA 12/06/24 In Process (Cozaar Tablet) 10:00 Thyroid Panel LAB 12/05/24 In Process 18:49 * Cardiology Consult CONS 12/05/24 Transmitted 18:49 Basic Metabolic Panel LAB 12/06/24 Verified 04:00 Admit ADMIT 12/05/24 Transmitted 18:49 Ondansetron Hcl PHA 12/05/24 In Process (Zofran) 19:00 Cardiac DIET 12/06/24 Transmitted Diet-2gna,Lofat,Lochol Breakfast Echo 2d Mode Cardiac US 12/05/24 Logged DOP 18:49 Condition: Fair PRITI 12/05/24 In Process 18:49 Acetaminophen Tablet PHA 12/05/24 In Process (Tylenol Tablet) 19:00 Bedrest With Bathroom PRITI 12/05/24 In Process Privileg 18:49 Nitroglycerin PHA 12/05/24 In Process Sublingual (Ntrostat 19:00 Morphine Sulfate PHA 12/05/24 In Process Injection 19:00 Stat Ekg For Chest PRITI 12/05/24 In Process Pain 18:49 Notify Md Of Changes PRITI 12/05/24 In Process From Base 18:49 Egg Grader For PRITI 12/05/24 In Process 24 Hours 18:49 Emergency Dysrhythmia PRITI 12/05/24 In Process Protocol 18:49 Rhythm Strips Once PRITI 12/05/24 In Process Every Shift 18:49 Oxygen By Nasal RT 12/05/24 Transmitted Cannula 18:49 Enoxaparin Sodium PHA 12/06/24 In Process (Lovenox) 10:00 Date of Service: Dec 05, 2024 Billing Provider: WILFRED BILLY Common Visit Codes: [id number] INP/OBS CARE (HIGH) WILFRED BILLY Dec 05, 2024 21:19
[2024-12-05 21:37] LABS: COVID19 ANTIGEN SOFIA FIA NEGATIVE (NEGATIVE)
[2024-12-05 21:52] VITALS: PULSE 56; RESP 15; O2SAT 97
[2024-12-05] MEDS: ATORVASTATIN 20 MG TAB PO SCH (22:27)
[2024-12-05 22:50] VITALS: BP 136/57; PULSE 63; RESP 18; TEMP 98.3; O2SAT 99
[2024-12-06] VITALS (8 sets, daily range): BP systolic 95–140; BP diastolic 54–79; PULSE 57–77; RESP 17–19; TEMP 97.3–97.9; O2SAT 92–98
[2024-12-06] MEDS: LEVOTHYROXINE SODIUM 100 MCG TAB PO SCH (06:01)
[2024-12-06 07:36] LABS: Chloride 106 mmol/L (98-107); Sodium 138 mmol/L (136-145)
[2024-12-06 07:37] LABS: Anion Gap 9 (5-15); Carbon Dioxide 23 mmol/L (20-31)
[2024-12-06 07:38] LABS: Calcium 10.5 mg/dL (8.7-10.4)
[2024-12-06 07:42] LABS: BUN/Creatinine Ratio 17.8 (10.0-20.0); Glucose 88 mg/dL (74-106)
[2024-12-06 07:45] LABS: Blood Urea Nitrogen 24 mg/dL (9-23)
[2024-12-06] MEDS ORDERED: ENOXAPARIN SOD 40 MG/0.4 ML SYRINGE SC SCH (10:00)
[2024-12-06] MEDS: ASPirin 81 mg TAB PO SCH (10:38)
[2024-12-06] MEDS: ENOXAPARIN SOD 30 MG/0.3 ML SYRINGE SC SCH (10:39)
[2024-12-06] MEDS: LOSARTAN POTASSIUM 50 MG TAB PO SCH (10:39)
[2024-12-06] MEDS: CLOPIDOGREL BISULFATE 75 MG TAB PO SCH (10:39)
--- NOTE | 2024-12-06 11:27 | DVHSR ---
APPROVED REPORT EXAM: Two-dimensional and M-mode echocardiogram with Doppler and color Doppler. Blood Pressure: 107/57 mmHg INDICATION Chest Pain RISK FACTORS Height: 64, Weight: 148 DIMENSIONS LVDd3.8 (3.8-5.7cm)LA (2D)3.5 (1.9-4.0cm)Aortic Root3.7 (2.0-3.7cm) LVDs3.0 (2.5-4.0cm)LA (MM) (1.9-4.0cm)Aortic Cusp Exc1.5 (1.5-2.0cm) EF (%) 45.0 (55-70%)Rt. Atrium (1.9-4.0cm)Asc. Aorta cm Mitral Valve MitralMitral Stenosis E wave0.38m/sMV Mean GR.mmHg A wave0.90m/sMV Peak GR.mmHg E/A ratio0.42D MVAcm2 DECEL [id number] 1/2 [id number] IVRTmsDop MVA1.68cm2 Aortic Valve Aortic ValveAortic Stenosis V10.75m/Ambrocio Mean GR.3mmHg V21.22m/[place]rocio Peak GR.6mmHg LVOT Diameter2.1 (1.8-2.4cm)Doppler AVA2.13cm2 Pulmonic Valve V20.75m/s Tricuspid Valve TR Velocity2.25m/s [id number] Other Information Technically limited study due to body habitus and patient position. Conclusion lvef 50% by visual estimate borderline LVH normal rv function normal atria no severe valve abnormalities noted
--- NOTE | 2024-12-06 13:40 | DVHPN2 ---
Progress Note - Dictate Date Seen: Dec 05, 2024 Medical Necessity Reason Pt with a Central, PICC or Fol: No Subjective PT WITH CHEST PAIN [facility] 2023 ESULTS: * Right coronary artery angiography showed patent right coronary artery with previous site of stent placement was patent. * Patent first diagonal of the posterior marginal branch. Previous site of stent placement was also patent. * Selective left coronary angiography revealed patent left main. * Patent left anterior descending artery. * Patent circumflex. * Previous site of stent placement of the left anterior descending artery was also patent. The patient's first diagonal had a 90% narrowing, status post thrombectomy with shockwave balloon. Now with less than 10% residual stenosis * Angioplasty with shockwave and thrombectomy of the second diagonal with stent placement with a 2.5 x 38 mm [place] stent with less than 10% residual stenosis. The patient has now completely been revascularized. The first and second diagonals have been revascularized too. * LAD has been revascularized. * Right coronary artery and the PDA has been revascularized with stent placements. SECONDARY POLYCYTHEMIA vital signs Vital Sign Date Time Temp Pulse Resp B/P (MAP) Pulse Ox O2 Delivery O2 Flow Rate FiO2 12/06/24 12:56 97.3 57 18 108/59 (75) 98 97.3 12/06/24 08:00 Room Air* 0 21 Total Intake and Output 12/05/24 12/05/24 12/06/24 15:00 23:00 07:00 Intake Total 250 ml 200 ml Balance 250 ml 200 ml medications Current Medications Medications Dose Ordered Sig/Anatoly Route Start Time Stop Time Status Last Admin Dose Admin Aspirin 81 mg DAILY PO 12/06/24 10:00 12/06/24 10:38 81 MG Atorvastatin Calcium 40 mg HS PO 12/05/24 22:00 12/05/24 22:27 40 MG Clopidogrel Bisulfate 75 mg DAILY PO 12/06/24 10:00 12/06/24 10:39 75 MG Levothyroxine Sodium 100 mcg QAM@0600 PO 12/06/24 06:00 12/06/24 06:01 100 MCG Losartan Potassium 50 mg DAILY PO 12/06/24 10:00 12/06/24 10:39 50 MG Ondansetron HCl 4 mg Q4HP PRN IV 12/05/24 19:00 Acetaminophen 650 mg Q6HP PRN PO 12/05/24 19:00 Nitroglycerin 0.4 mg Q5MINP PRN SL 12/05/24 19:00 Morphine Sulfate 2 mg Q30M PRN IV 12/05/24 19:00 Enoxaparin Sodium 30 mg DAILY SC 12/06/24 10:00 12/06/24 10:39 30 MG laboratory and microbiology Laboratory Tests 12/06/24 06:25 12/05/24 15:54 Test 12/06/24 06:25 Range/Units Serum Glucose 88 74-106 mg/dL Problem List CHEST PAIN [facility] 2023 ESULTS: * Right coronary artery angiography showed patent right coronary artery with previous site of stent placement was patent. * Patent first diagonal of the posterior marginal branch. Previous site of stent placement was also patent. * Selective left coronary angiography revealed patent left main. * Patent left anterior descending artery. * Patent circumflex. * Previous site of stent placement of the left anterior descending artery was also patent. The patient's first diagonal had a 90% narrowing, status post thrombectomy with shockwave balloon. Now with less than 10% residual stenosis * Angioplasty with shockwave and thrombectomy of the second diagonal with stent placement with a 2.5 x 38 mm [place] stent with less than 10% residual stenosis. The patient has now completely been revascularized. The first and second diagonals have been revascularized too. * LAD has been revascularized. * Right coronary artery and the PDA has been revascularized with stent placements. SECONDARY POLYCYTHEMIA Assessment/Plan TROPONIN NEGATIVE ECG NO ACUTE CHANGES NON CARDIAC CHEST PAIN Plan discussed with: Patient TANIA MURRAY MD Dec 06, 2024 13:40
--- NOTE | 2024-12-06 13:41 | DVHPN2 ---
Progress Note - Dictate Date Seen: Dec 06, 2024 Medical Necessity Reason Pt with a Central, PICC or Fol: No Subjective PT WITH CHEST PAIN [facility] 2023 ESULTS: * Right coronary artery angiography showed patent right coronary artery with previous site of stent placement was patent. * Patent first diagonal of the posterior marginal branch. Previous site of stent placement was also patent. * Selective left coronary angiography revealed patent left main. * Patent left anterior descending artery. * Patent circumflex. * Previous site of stent placement of the left anterior descending artery was also patent. The patient's first diagonal had a 90% narrowing, status post thrombectomy with shockwave balloon. Now with less than 10% residual stenosis * Angioplasty with shockwave and thrombectomy of the second diagonal with stent placement with a 2.5 x 38 mm [place] stent with less than 10% residual stenosis. The patient has now completely been revascularized. The first and second diagonals have been revascularized too. * LAD has been revascularized. * Right coronary artery and the PDA has been revascularized with stent placements. SECONDARY POLYCYTHEMIA vital signs Vital Sign Date Time Temp Pulse Resp B/P (MAP) Pulse Ox O2 Delivery O2 Flow Rate FiO2 12/06/24 12:56 97.3 57 18 108/59 (75) 98 97.3 12/06/24 08:00 Room Air* 0 21 Total Intake and Output 12/05/24 12/05/24 12/06/24 15:00 23:00 07:00 Intake Total 250 ml 200 ml Balance 250 ml 200 ml medications Current Medications Medications Dose Ordered Sig/Anatoly Route Start Time Stop Time Status Last Admin Dose Admin Aspirin 81 mg DAILY PO 12/06/24 10:00 12/06/24 10:38 81 MG Atorvastatin Calcium 40 mg HS PO 12/05/24 22:00 12/05/24 22:27 40 MG Clopidogrel Bisulfate 75 mg DAILY PO 12/06/24 10:00 12/06/24 10:39 75 MG Levothyroxine Sodium 100 mcg QAM@0600 PO 12/06/24 06:00 12/06/24 06:01 100 MCG Losartan Potassium 50 mg DAILY PO 12/06/24 10:00 12/06/24 10:39 50 MG Ondansetron HCl 4 mg Q4HP PRN IV 12/05/24 19:00 Acetaminophen 650 mg Q6HP PRN PO 12/05/24 19:00 Nitroglycerin 0.4 mg Q5MINP PRN SL 12/05/24 19:00 Morphine Sulfate 2 mg Q30M PRN IV 12/05/24 19:00 Enoxaparin Sodium 30 mg DAILY SC 12/06/24 10:00 12/06/24 10:39 30 MG laboratory and microbiology Laboratory Tests 12/06/24 06:25 12/05/24 15:54 Test 12/06/24 06:25 Range/Units Serum Glucose 88 74-106 mg/dL Problem List CHEST PAIN [facility] 2023 ESULTS: * Right coronary artery angiography showed patent right coronary artery with previous site of stent placement was patent. * Patent first diagonal of the posterior marginal branch. Previous site of stent placement was also patent. * Selective left coronary angiography revealed patent left main. * Patent left anterior descending artery. * Patent circumflex. * Previous site of stent placement of the left anterior descending artery was also patent. The patient's first diagonal had a 90% narrowing, status post thrombectomy with shockwave balloon. Now with less than 10% residual stenosis * Angioplasty with shockwave and thrombectomy of the second diagonal with stent placement with a 2.5 x 38 mm [place] stent with less than 10% residual stenosis. The patient has now completely been revascularized. The first and second diagonals have been revascularized too. * LAD has been revascularized. * Right coronary artery and the PDA has been revascularized with stent placements. SECONDARY POLYCYTHEMIA Assessment/Plan TROPONIN NEGATIVE ECG NO ACUTE CHANGES NON CARDIAC CHEST PAIN Plan discussed with: Patient TANIA MURRAY MD Dec 06, 2024 13:41
--- NOTE | 2024-12-06 15:21 | DVHPN2 ---
Subjective in bed resting Reviewed: Care Plan Changes from previous H/P or p: No Changes Objective Vitals Vital Signs Date Time Temp Pulse Resp B/P (MAP) Pulse Ox O2 Delivery O2 Flow Rate FiO2 12/06/24 12:56 97.3 57 18 108/59 (75) 98 97.3 12/06/24 08:00 Room Air* 0 21 Intake/Output Intake and Output 12/06/24 07:00 Intake Total 450 ml Balance 450 ml Intake Oral 200 ml IV Total 250 ml # Voids 1 General Appearance: Alert, Oriented X3 Lungs: Clear to auscultation Cardiovascular: Regular rate, Normal S1, Normal S2 Abdomen: Normal bowel sounds Medications Current Medications Medications Dose Ordered Sig/Anatoly Route Start Time Stop Time Status Last Admin Dose Admin Aspirin 81 mg DAILY PO 12/06/24 10:00 12/06/24 10:38 81 MG Atorvastatin Calcium 40 mg HS PO 12/05/24 22:00 12/05/24 22:27 40 MG Clopidogrel Bisulfate 75 mg DAILY PO 12/06/24 10:00 12/06/24 10:39 75 MG Levothyroxine Sodium 100 mcg QAM@0600 PO 12/06/24 06:00 12/06/24 06:01 100 MCG Losartan Potassium 50 mg DAILY PO 12/06/24 10:00 12/06/24 10:39 50 MG Ondansetron HCl 4 mg Q4HP PRN IV 12/05/24 19:00 Acetaminophen 650 mg Q6HP PRN PO 12/05/24 19:00 Nitroglycerin 0.4 mg Q5MINP PRN SL 12/05/24 19:00 Morphine Sulfate 2 mg Q30M PRN IV 12/05/24 19:00 Enoxaparin Sodium 30 mg DAILY SC 12/06/24 10:00 12/06/24 10:39 30 MG Laboratory Results Laboratory Tests 12/05/24 15:54 12/06/24 06:25 Chemistry Test 12/05/24 15:54 12/06/24 06:25 Calcium Level 11.3 mg/dL (8.7-10.4) H 10.5 mg/dL (8.7-10.4) H Magnesium Level 2.2 mg/dL (1.6-2.6) Phosphorus Level 3.6 mg/dL (2.4-5.1) Lipid panel Test 12/05/24 15:54 Lipase 91 U/L (12-53) H Cardiac Markers Test 12/05/24 15:54 B-Type Natriuretic Peptide 33.97 pg/mL (0-100) HgA1c, TSH Test 12/05/24 15:54 Thyroid Stimulating Hormone (TSH) 8.01 uIU/mL (0.55-4.78) H Urinalysis Test 12/05/24 15:38 Urine Color Yellow (Yellow) Urine Clarity Clear (Clear) Urine pH 5.5 (5.0-9.0) Urine Specific [place] 1.021 (1.001-1.035) Urine Protein Trace (Negative) H Urine Ketones Negative (Negative) Urine Blood Negative /uL (Negative) Urine Nitrite Negative (Negative) Urine Bilirubin Negative (Negative) Urine Urobilinogen 2 mg/dL (Negative) H Urine Leukocyte Esterase Negative /uL (Negative) Urine RBC 1 /hpf (0 - 3) Urine Microscopic WBC 2 /HPF (0-3) Urine Squamous Epithelial Cells Few /hpf (<5) Urine Bacteria Few /hpf (None Seen) H Urine Hyaline Casts Many /lpf (0 - 2) Urine Mucus Few (None Seen) Urine Glucose Normal mg/dL (Normal) Assessment/Plan Assessment/Plan Unstable angina ruled out, with negative troponins and echocardiogram Chest pain probable muscular in nature History of [place] Status post PTCA Acute kidney injury baseline 1, came with 1.73 downtrending now Hypothyroid Plan discussed with: Patient My Orders Orders - TEJINDER THORNTON MD Procedure Category Date Status Time * Wound Consult CONS 12/06/24 Transmitted Date of Service: Dec 06, 2024 Billing Provider: TEJINDER THORNTON MD Common Visit Codes: [id number] INP/OBS CARE(HIGH) TEJINDER THORNTON MD Dec 06, 2024 15:21
--- NOTE | 2024-12-07 01:05 | ECG ---
[facility] Test Date: 2024-12-05 Test Time: 15:25:31 Pat Name: XIN STRAUSS Department: ER Room: 0247T Gender: M [employer]: SOHA : 1940 Requested By: FAY WALLACE Order Number: [id number] Reading MD: Measurements Intervals Jackson Rate: 61 P: 69 DE: 157 QRS: 42 QRSD: 97 T: 231 QT: 398 QTc: 401 Interpretive Statements Sinus rhythm Abnormal T, consider ischemia, diffuse leads Please click the below link to view image of tracing.
[2024-12-07 05:00] VITALS: BP 127/71; PULSE 68; RESP 19; TEMP 98.1; O2SAT 97
[2024-12-07 08:00] VITALS: PULSE 63
[2024-12-07 08:07] LABS: Free Thyroxine Index 1.7 (1.2-4.9); Thyroxine (T4) 6.3 ug/dL (4.5-12.0)
[2024-12-07 08:30] VITALS: BP 133/76; PULSE 64; RESP 16; TEMP 97.3; O2SAT 97
[2024-12-07] MEDS ORDERED: ASPI-325 PO (12:21)
[2024-12-07 12:30] VITALS: BP 111/62; PULSE 60; RESP 14; TEMP 98.3; O2SAT 98
--- NOTE | 2024-12-07 14:26 | DVHDS2 ---
Discharge Summary Date of Admission Dec 05, 2024 at 18:49 Date of Discharge: Dec 07, 2024 Labs/Diagnostic Data: Laboratory Results Test 12/06/24 06:25 12/05/24 20:25 12/05/24 19:38 12/05/24 16:49 Sodium Level 138 mmol/L (136-145) Potassium Level 5.0 mmol/L (3.5-5.1) Chloride Level 106 mmol/L (98-107) Carbon Dioxide Level 23 mmol/L (20-31) Anion Gap 9 (5-15) Blood Urea Nitrogen 24 mg/dL (9-23) Creatinine 1.35 mg/dL (0.700-1.30) Glomerular Filtration Rate Calc 52 mL/min (>90) BUN/Creatinine Ratio 17.8 (10.0-20.0) Serum Glucose 88 mg/dL (74-106) Calcium Level 10.5 mg/dL (8.7-10.4) SARS-CoV-2 Antigen (Rapid) Negative (NEGATIVE) Free Thyroxine Index 1.7 (1.2-4.9) Thyroxine (T4) 6.3 ug/dL (4.5-12.0) Triiodothyronine (T3) Uptake 27 % (24-39) Troponin I High Sensitivity 19 ng/L (</=54) Test 12/05/24 15:54 12/05/24 15:38 White Blood Count 9.4 10^3/uL (4.4-10.8) Red Blood Count 6.27 10^6/uL (4.5-5.90) Hemoglobin 17.5 g/dL (13.5-17.5) Hematocrit 53.3 % (41.0-53.0) Mean Corpuscular Volume 85.0 fL (80.0-100.0) Mean Corpuscular Hemoglobin 27.9 pg (28.0-32.0) Mean Corpuscular Hemoglobin Concent 32.8 g/dL (32.0-36.0) Red Cell Distribution Width 17.9 % (11.8-14.3) Platelet Count 224 10^3/uL (140-450) Mean Platelet Volume 7.7 fL (6.9-10.8) Neutrophils (%) (Auto) 45.1 % (37.0-80.0) Lymphocytes (%) (Auto) 42.9 % (10.0-50.0) Monocytes (%) (Auto) 7.7 % (0.0-12.0) Eosinophils (%) (Auto) 3.2 % (0.0-7.0) Basophils (%) (Auto) 1.1 % (0.0-2.0) Neutrophils # (Auto) 4.2 10 ^3/uL (1.6-8.6) Lymphocytes # (Auto) 4.0 10 ^3/uL (0.4-5.4) Monocytes # (Auto) 0.7 10 ^3/uL (0-1.3) Eosinophils # (Auto) 0.3 10 ^3/uL (0-0.8) Basophils # (Auto) 0.1 10 ^3/uL (0-0.2) Nucleated Red Blood Cells 0.2 % Phosphorus Level 3.6 mg/dL (2.4-5.1) Magnesium Level 2.2 mg/dL (1.6-2.6) B-Type Natriuretic Peptide 33.97 pg/mL (0-100) Lipase 91 U/L (12-53) Thyroid Stimulating Hormone (TSH) 8.01 uIU/mL (0.55-4.78) Urine Color Yellow (Yellow) Urine Clarity Clear (Clear) Urine pH 5.5 (5.0-9.0) Urine Specific [place] 1.021 (1.001-1.035) Urine Protein Trace (Negative) Urine Ketones Negative (Negative) Urine Blood Negative /uL (Negative) Urine Nitrite Negative (Negative) Urine Bilirubin Negative (Negative) Urine Urobilinogen 2 mg/dL (Negative) Urine Leukocyte Esterase Negative /uL (Negative) Urine RBC 1 /hpf (0 - 3) Urine Microscopic WBC 2 /HPF (0-3) Urine Squamous Epithelial Cells Few /hpf (<5) Urine Bacteria Few /hpf (None Seen) Urine Hyaline Casts Many /lpf (0 - 2) Urine Mucus Few (None Seen) Urine Glucose Normal mg/dL (Normal) Other Laboratory Tests 12/06/24 06:25 12/05/24 15:54 Brief Hx & Hospital Course: 84-year-old male presents for chest pain. Patient reports a two day history left-sided chest pain. He states the pain that is nonradiating and is aching can nature. Denies shortness or breath, nausea or vomiting. No other acute complaints reported. troponins negative, echo with no abnormalities most likely pain muscular in nature Condition at Discharge: Good Final Diagnosis/Problems List chest pain muscular Unstable angina ruled out History of [place] Status post PTCA Acute kidney injury Hypothyroid Discharge Disposition: Home Discharge Instruct/Medications Diet: Regular Activity: No Restrictions, As Tolerated Follow Up/Referral: pcp in 7 days Medications: aspirin and same meds Discharge Statement: "Patient was advised to return to the ER or call 911 if any headaches, dizziness, shortness of breath, chest pain, abdominal pain, bleeding, fevers, or worsening of medical condition. Patient was counseled about treatment plan, medications, possible side effects, patientverbalized understanding. All questions were answered to the best of my ability. This discharge took greater then 30 minutes in planning, reviewing documentation, counseling the patient, and discussing with other team members." ASSESSMENT ASSESSMENT Assessment chest pain muscular Date of Service: Dec 07, 2024 Billing Provider: TEJINDER THORNTON MD Common Visit Codes: 88117-EPS/OBS DISCH DAY >30min TEJINDER THORNTON MD Dec 07, 2024 14:26
[2024-12-07 15:21] VITALS: BP 121/79
[2024-12-07 16:57] VITALS: BP 103/64; PULSE 72; RESP 16; TEMP 97.7; O2SAT 96
== END 2024-12-07 16:30 | disposition home or self-care (01) | DRG 198 ==
LOC: ER 15:16 → OVERFLOW 18:49 → TELE-EAST 18:57
PROVIDERS: ADMIT Hospitalist; ATTEND Hospitalist
DX: R07.89 Other chest pain (principal); I25.2 Old myocardial infarction; N17.9 Acute kidney failure, unspecified; I50.9 Heart failure, unspecified; Z20.822 Contact with and (suspected) exposure to COVID-19; E03.9 Hypothyroidism, unspecified; D75.1 Secondary polycythemia; Z86.73 Personal history of transient ischemic attack (TIA), and cerebral infarction without residual deficits; Z95.5 Presence of coronary angioplasty implant and graft; Z79.82 Long term (current) use of aspirin; Z79.899 Other long term (current) drug therapy
CPT/HCPCS: 36415; 71045; 80048; 81001; 83690; 83735; 83880; 84100; 84443; 84484; 85025; 87426; 93005; 93306; 96365; G0378

== ENCOUNTER → 2025-02-18 | Outpatient (CLI) | payer MEDICAID ==
[~2025-02-18] MED LIST changes: -LEV75T PO; -PANT40T PO; -TAMS0.4C39 PO
== END | disposition home or self-care (01) ==
LOC: Rad HDHVI 11:04
PROVIDERS: ATTEND Internal Medicine Cardiovascular Disease
DX: I08.8 Other rheumatic multiple valve diseases (principal)
CPT/HCPCS: 93306

== ENCOUNTER → 2025-02-21 | Outpatient (CLI) | payer MEDICAID ==
[~2025-02-21] VITALS: Ht 162.6 cm; Wt 64.0 kg
[~2025-02-21] MED LIST changes: +ADENOSINE 54 MG in GIVE UN-DILUTED 0 ML IV ONE; +ADENOSINE 90 MG/30 ML INJ IV ONE
== END | disposition home or self-care (01) ==
LOC: Rad HDHVI 08:09
PROVIDERS: ATTEND Internal Medicine Cardiovascular Disease
DX: R00.1 Bradycardia, unspecified (principal); I25.10 Atherosclerotic heart disease of native coronary artery without angina pectoris; I25.2 Old myocardial infarction; I13.0 Hypertensive heart and chronic kidney disease with heart failure and stage 1 through stage 4 chronic kidney disease, or unspecified chronic kidney disease; N18.2 Chronic kidney disease, stage 2 (mild); I50.9 Heart failure, unspecified; E11.22 Type 2 diabetes mellitus with diabetic chronic kidney disease; J44.9 Chronic obstructive pulmonary disease, unspecified; Z86.73 Personal history of transient ischemic attack (TIA), and cerebral infarction without residual deficits; Z98.61 Coronary angioplasty status; Z79.82 Long term (current) use of aspirin
CPT/HCPCS: 78452; 93017; A9500; J0153

== ENCOUNTER → 2025-03-01 | Outpatient (CLI) | payer MEDICAID ==
[~2025-03-01] MED LIST changes: -ADENOSINE 54 MG in GIVE UN-DILUTED 0 ML IV ONE; -ADENOSINE 90 MG/30 ML INJ IV ONE
[2025-03-01 10:49] LABS: Creatinine, Urine 146.9 mg/dL (30.0-125.0)
== END | disposition home or self-care (01) ==
LOC: LAB 09:07
PROVIDERS: ATTEND Internal Medicine
DX: I11.0 Hypertensive heart disease with heart failure (principal); I50.9 Heart failure, unspecified; E11.9 Type 2 diabetes mellitus without complications; R07.9 Chest pain, unspecified
CPT/HCPCS: 36415; 82043; 82570; 83036; 84443

== ENCOUNTER 2025-05-18 10:09 | Outpatient (CLI) | payer MEDICAID ==
[2025-05-18 10:20] VITALS: BP 132/58; PULSE 54; RESP 16; O2SAT 95
[2025-05-18] MEDS ORDERED: IOHEXOL 350 MG/ML 100ML IJ ONE (10:23)
[2025-05-18 10:38] VITALS: BP 125/60; PULSE 63; RESP 16; O2SAT 95
--- NOTE | 2025-05-18 15:33 | DVH ---
INDICATION: STENOSIS COMPARISON: CT CERVICAL WITHOUT CONTRAST on DOS: 06/13/23 TECHNIQUE: CTA head without and with intravenous contrast. CTA neck with intravenous contrast. 3D image postprocessing was performed on a dedicated workstation and images were used for interpretation and reporting. Radiation Dose Information: CT Dose: CTDI volume is 62.43 mGy. Dose-length product is 843.98 mGy*cm FINDINGS: CT head: There is no evidence of acute intracranial hemorrhage, extra-axial collection, mass effect, midline s hift, herniation or hydrocephalus. The ventricles, sulci and cisterns are age appropriate. The daly -white differentiation is intact. The visualized paranasal sinuses and mastoid air cells are clear. The surrounding soft tissues and osseous structures are unremarkable. CTA head: Diffuse vascular atherosclerotic plaque associated with the intracranial components of the bilateral distal internal carotid artery. There is normal enhancement of the visualized distal internal carotid , anterior and middle cerebral arteries. There is a normal anterior communicating artery complex. T here are bilateral posterior communicating arteries. The vertebral, basilar, cerebellar and posterio r cerebral arteries are within normal limits. The early parenchymal enhancement is grossly unremarka ble. The visualized intracranial venous structures are grossly unremarkable. CTA neck: The visualized thoracic aortic arch and proximal great vessels are unremarkable. The left common, internal and external carotid arteries are within normal limits. Approximately 50% short-segment stenosis of the proximal right internal carotid artery secondary to a theromatous plaque. The cervical segments of the right vertebral arteries are within normal limits. Approximately 75% sh ort-segment stenosis of the proximal left vertebral artery. The limited visualized lung apices are clear. The surrounding soft tissues and osseous structures ar e otherwise unremarkable. IMPRESSION: No evidence of acute intracranial hemorrhage, mass effect or hydrocephalus. No evidence of hemodynamically significant intracranial stenosis, proximal occlusion or aneurysm. 75% short-segment stenosis of the proximal left vertebral artery. 50% short-segment stenosis of the proximal right internal carotid artery. All CT scans at this medical facility are performed using dose modulation techniques as appropriate t o a performed exam including the following: Automated exposure control was utilized; adjustment of th e MA and/or KV according to patient size; and use of iterative reconstruction technique.
== END 2025-05-18 17:00 | disposition home or self-care (01) ==
LOC: Rad HDHVI 10:09
PROVIDERS: ATTEND Internal Medicine Cardiovascular Disease
DX: I65.23 Occlusion and stenosis of bilateral carotid arteries (principal); G93.89 Other specified disorders of brain; R51.9 Headache, unspecified; H53.8 Other visual disturbances
CPT/HCPCS: 70496; G0463; Q9967

== ENCOUNTER → 2025-07-25 | Outpatient (CLI) | payer MEDICAID ==
[~2025-07-25] MED LIST changes: +LEVO75CA3 PO; +PANT40T PO; +TAMS0.4C39 PO
== END | disposition home or self-care (01) ==
LOC: LAB 13:30
PROVIDERS: ATTEND Internal Medicine
DX: R51.9 Headache, unspecified (principal); M54.50 Low back pain, unspecified
CPT/HCPCS: 36415; 82550; 84443; 85652

== ENCOUNTER → 2025-07-25 | Outpatient (CLI) | payer MEDICAID ==
[2025-07-25 12:35] VITALS: BP 105/58; PULSE 68; RESP 16; O2SAT 94
[2025-07-25 12:43] VITALS: BP 90/53; PULSE 61; RESP 16; O2SAT 94
== END | disposition home or self-care (01) ==
LOC: CHF HDHVI 12:27
PROVIDERS: ATTEND Internal Medicine Cardiovascular Disease
DX: Z01.810 Encounter for preprocedural cardiovascular examination (principal); I65.23 Occlusion and stenosis of bilateral carotid arteries; R94.31 Abnormal electrocardiogram [ECG] [EKG]
CPT/HCPCS: 93005; G0463

== ENCOUNTER 2025-07-28 07:53 | Day surgery (SDC) | payer MEDICAID ==
[2025-07-25 14:05] LABS: Hematocrit 50.4 % (41.0-53.0); Hemoglobin 16.9 g/dL (13.5-17.5); Mean Corpuscular Hemoglobin 30.0 pg (28.0-32.0); Mean Corpuscular Volume 89.2 fL (80.0-100.0); Nucleated Red Blood Cells % 0.1 %
[2025-07-25 14:19] LABS: INR 0.97 (0.9-1.15); Partial Thromboplastin Time 25.0 SEC (24.5-34.5); Prothrombin Time 10.3 sec (9.3-11.8)
[2025-07-25 14:26] LABS: Chloride 104 mmol/L (98-107); Potassium 4.5 mmol/L (3.5-5.1); Sodium 141 mmol/L (136-145)
[2025-07-25 14:28] LABS: Calcium 10.5 mg/dL (8.7-10.4)
[2025-07-25 14:32] LABS: BUN/Creatinine Ratio 10.5 (10.0-20.0); Blood Urea Nitrogen 16 mg/dL (9-23)
[2025-07-25 14:33] LABS: Glucose 108 mg/dL (74-106)
[2025-07-25 14:34] LABS: Anion Gap 9 (5-15); Carbon Dioxide 28 mmol/L (20-31)
[~2025-07-28] VITALS: Ht 162.6 cm; Wt 63.5 kg
[2025-07-28] VITALS (10 sets, daily range): BP systolic 134–158; BP diastolic 50–75; PULSE 56–66; RESP 12–18; O2SAT 94–100
[~2025-07-28 07:53] MED LIST changes: -ASPI-325 PO; -PANT40T PO; -TAMS0.4C39 PO
[2025-07-28] MEDS ORDERED: ANGIOMAX 250 MG VIAL IV ONE (09:55)
[2025-07-28] MEDS ORDERED: SODIUM CHL 0.9% 0 ML ONE (09:55)
[2025-07-28] MEDS ORDERED: GLYCOPYRROLATE 0.2 MG/ML 1ML VIAL ONE (09:55)
[2025-07-28] MEDS ORDERED: HEPARIN IN NS 1000Units/500mL 1,500 ML ONE (09:57)
[2025-07-28] MEDS ORDERED: fentaNYL CITRATE 100 MCG/2 ML VL ONE (09:57)
[2025-07-28] MEDS ORDERED: MIDAZOLAM HCL 2MG/2ML 2ml VIAL (1mg/ml) ONE (09:57)
[2025-07-28] MEDS ORDERED: LIDOCAINE 2%HCL (LOCAL ANESTH.) INJ 20ML MDV ONE (09:58)
--- NOTE | 2025-07-28 11:14 | DVHOP ---
DATE OF SURGERY: 07/28/2025 PROCEDURES PERFORMED: * Selective left and right carotid angiography. * Left and right subclavian angiography. * Left and right cerebral angiography. DESCRIPTION OF PROCEDURE: The patient was prepped and draped under sterile condition. 1% Xylocaine was used to anesthetize the right groin. Conscious sedation was given. Following that, a Cook needle was used to engage the right femoral artery. Via Seldinger technique, a 6-Cambodian sheath was placed in the right femoral artery. Using a 6-Cambodian JR4 diagnostic catheter, selective left subclavian, carotid, and cerebral angiography were performed. There were no complications. The patient tolerated the procedure well. Right femoral arteriotomy site was then closed using the AngioSeal device. RESULTS: * Left and right common carotid without any flow restrictive lesion. * Left and right internal carotid artery without any flow restrictive lesion. * Left and right external carotid arteries without any flow restrictive lesion. * Left and right subclavian without any significant narrowing or occlusion or dissection. At this time, the patient with minimal disease in the right and left coronary artery at the ostium, probably around 20%, otherwise unremarkable. At this stage, no further workup is required. No catheter base or surgical intervention is warranted. Continue the patient on conservative medical management. Develop antiplatelet therapy. Follow up with me in 1 week. Terry Ambrose MD SA/EKT TID: [id number] RECEIPT: [id number]
--- NOTE | 2025-07-28 11:17 | DVHDS ---
DATE OF DISCHARGE: 07/28/2025 The patient with TIA-like symptoms. Underwent carotid angiogram. Carotid angiogram failed to demonstrate any flow-restrictive lesion, mild intimal irregularity, otherwise unremarkable. The patient does not require a catheter-based or surgical intervention. The patient may be discharged home, maintain him on dual antiplatelet therapy, continue risk modification. Follow up with me in 1 week. Terry Ambrose MD SA/YING TID: [id number] RECEIPT: [id number]
--- NOTE | 2025-07-28 11:32 | DVHHP ---
ADMIT DATE: 07/28/2025 HISTORY OF PRESENT ILLNESS: The patient who is 85 years old with a history of coronary artery disease. Had multivessel angioplasty in a staged procedure. The patient's ejection fraction is slightly diminished. Otherwise, the patient is doing extremely well. Carotid Doppler showed the patient to have significant right internal carotid artery stenosis as well as left vertebral stenosis, but he does have some dizziness and that may be attributed to vertebral restenosis. If the patient's carotid arteries are within normal limits, we will not intervene on the vertebral body. If the carotid arteries are diseased and vertebral artery is also diseased, because of the symptoms of dizziness, then revascularizing the vertebral artery may be beneficial, even though it carries a higher risk. PERTINENT MEDICAL HISTORY: Significant for hypertension, hyperlipidemia. History of previous angina, non-ST elevation WI. REVIEW OF SYSTEMS: He denies any fever, chills, melena, or hematochezia. No bleeding diathesis. No hematemesis or hemoptysis. No history of any COPD or tobacco use. No history of inflammatory bowel disease or irritable bowel syndrome. No history of connective tissue disease. PHYSICAL EXAMINATION: VITAL SIGNS: Blood pressure 124/80, pulse of 77, O2 saturation 98% on room air. HEENT: Pupils are reactive. Funduscopic exam is benign. Sclerae anicteric. No exudates noted. Tympanic membranes are negative. NECK: Supple. Carotid pulses are 2+ and symmetrical with normal upstroke and contour. No evidence of any nuchal rigidity. No JVD appreciated. PULMONARY: Clear to auscultation. CARDIOVASCULAR: Regular rate without S3, without S4. PMI is not displaced. ABDOMEN: Soft, nontender. Liver approximately 5 cm by percussion. No epigastric tenderness. No suprapubic tenderness. No CVA tenderness. NEUROLOGIC: The patient is intact at this time. DTRs are 2+ and symmetrical. Cranial nerves 2-12 are within normal limits. Sensory and motor modalities are intact. Negative for ataxia. Negative for Babinski and negative for pronator drift. EXTREMITIES: 1+ edema, 1+ pulses bilaterally. Thus, the patient's Doppler shows high-grade narrowing of the right ICA and left vertebral angiography will be performed. We will make further recommendations after the angiogram. Risks and benefits were explained to the patient and family. Terry Ambrose MD SA/JACQUI TID: [id number] RECEIPT: [id number]
== END 2025-07-28 18:55 | disposition home or self-care (01) ==
LOC: CATH 07:53
PROVIDERS: ATTEND Internal Medicine Cardiovascular Disease
DX: I65.21 Occlusion and stenosis of right carotid artery (principal); I65.02 Occlusion and stenosis of left vertebral artery; I11.0 Hypertensive heart disease with heart failure; I50.22 Chronic systolic (congestive) heart failure; I25.118 Atherosclerotic heart disease of native coronary artery with other forms of angina pectoris; I25.2 Old myocardial infarction; E78.5 Hyperlipidemia, unspecified; Z79.899 Other long term (current) drug therapy; Z95.5 Presence of coronary angioplasty implant and graft; Z87.891 Personal history of nicotine dependence
CPT/HCPCS: 36222; 36225; 36227; 36415; 80048; 85025; 85610; 85730; C1760; C1769; C1894; J1644; 99152; J2250

== ENCOUNTER 2025-08-17 08:05 | Outpatient (CLI) | payer MEDICAID | END 2025-08-17 17:00 | disposition home or self-care (01) | LOC: Rad HDHVI 08:05 | PROVIDERS: ATTEND Internal Medicine Cardiovascular Disease | DX: I72.4 Aneurysm of artery of lower extremity (principal) | CPT/HCPCS: 93926 ==